=== PATIENT | female | born 1985 | race African-American/Black ===

== ENCOUNTER 2019-06-05 12:39 | Emergency (ER) | payer OTHER ==
[~2019-06-05] VITALS: Ht 167.6 cm; Wt 72.6 kg
[2019-06-05 17:31] LABS: HEMATOCRIT 36.5 % (37.0-47.0); HEMOGLOBIN 11.8 gm/dL (12.0-15.0); MCH 29.3 pg (26.0-34.0); MCHC 32.4 g/dL (28.0-37.0); MCV 90.6 fL (80.0-100.0); RBC 4.03 mil/uL (4.20-5.00); RDW 14.9 % (10.5-14.5); WBC 4.9 thou/uL (4.0-11.0)
[2019-06-05 17:37] LABS: CALCIUM 9.2 mg/dL (8.5-10.1); CREATININE 6.4 mg/dL (0.6-1.0); POTASSIUM 4.1 mmol/L (3.5-5.1)
[2019-06-05 18:00] VITALS: BP 162/108
== END 2019-06-05 18:15 | disposition home or self-care (01) ==
LOC: ER 12:39
PROVIDERS: Emergency Medicine
DX: Z02.79 Encounter for issue of other medical certificate (principal); J11.1 Influenza due to unidentified influenza virus with other respiratory manifestations; F17.210 Nicotine dependence, cigarettes, uncomplicated; Z99.2 Dependence on renal dialysis

== ENCOUNTER 2019-10-27 18:43 | Emergency (ER) | payer BC, OTHER ==
[~2019-10-27] VITALS: Ht 167.6 cm; Wt 79.4 kg
[2019-10-27] MEDS ORDERED: CLONIDINE HCL0.2 M2 PO (18:55)
[2019-10-27 19:41] LABS: ABSOLUTE NEUTROPHILS 3.7 thou/uL (1.4-8.2); BASOPHILS 0.4 % (0.0-2.0); EOSINOPHILS 2.1 % (0.0-3.0); HEMATOCRIT 24.6 % (37.0-47.0); HEMOGLOBIN 8.2 gm/dL (12.0-15.0); LYMPHOCYTES 29.1 % (24.0-44.0); MCH 30.1 pg (26.0-34.0); MCHC 33.2 g/dL (28.0-37.0); MCV 90.6 fL (80.0-100.0); PLATELET COUNT 191 thou/uL (150-400); POLYS 61.4 % (36.0-66.0); RBC 2.71 mil/uL (4.20-5.00); RDW 14.1 % (10.5-14.5)
[2019-10-27 19:45] LABS: CALCIUM 8.3 mg/dL (8.5-10.1); CREATININE 7.8 mg/dL (0.6-1.0); POTASSIUM 4.2 mmol/L (3.5-5.1)
[2019-10-27 19:51] LABS: ALBUMIN 3.7 g/dL (3.4-5.0); TOTAL BILIRUBIN 0.2 mg/dL (0.2-1.0); TOTAL PROTEIN 7.4 g/dL (6.4-8.2)
[2019-10-27 20:08] VITALS: BP 169/117
== END 2019-10-27 20:09 | disposition home or self-care (01) ==
LOC: ER 18:43
PROVIDERS: Physician Assistant
DX: R63.0 Anorexia (principal); N18.9 Chronic kidney disease, unspecified; Q61.3 Polycystic kidney, unspecified; F17.210 Nicotine dependence, cigarettes, uncomplicated; Z99.2 Dependence on renal dialysis; Z79.899 Other long term (current) drug therapy; Z91.19 Patient's noncompliance with other medical treatment and regimen